=== PATIENT | female | born 1945 | race Caucasian/White ===

== ENCOUNTER → 2018-03-08 14:35 | Outpatient (CLI) | payer MEDICARE, OTHER, SELFPAY ==
--- NOTE | 2018-03-08 | DI.RAD.S_ITS ---
PROCEDURE: XR PELVIS 1-2V INDICATIONS: PELVIC AND PERINEAL PAIN AFTER FALL TECHNIQUE: Single view(s) of the pelvis acquired. COMPARISON: None. FINDINGS: Bones: No fractures or dislocations. No suspicious bony lesions. Lower lumbar discogenic changes. Mild to moderate bilateral hip joint degeneration. Soft tissues: Visualized bowel gas pattern is normal. No suspicious soft tissue calcifications. IMPRESSION: No fracture identified. Dictated by: Hipolito Maloney M.D. on 03/08/2018 at 16:02 Approved by: Hipolito Maloney M.D. on 03/08/2018 at 16:03
== END ==
PROVIDERS: Visit Provider Internal Medicine
DX: R10.2 Pelvic and perineal pain (principal); M16.0 Bilateral primary osteoarthritis of hip
CPT/HCPCS: 72170

== ENCOUNTER → 2018-07-13 15:42 | Outpatient (REF) | payer MEDICARE, OTHER, SELFPAY ==
[2018-07-13 16:06] LABS: BUN Creatinine Ratio 32.9 (6-22); Blood Urea Nitrogen 23 mg/dL (7-17); Calcium 9.7 mg/dL (8.4-10.2); Carbon Dioxide 29 mmol/L (22-32); Chloride 100 mmol/L (98-107); Estimated Glomerular Filt Rate > 60.0 mL/min (>60); Glucose 87 mg/dL (80-110); HEMOLYSIS < 15 (0-50); Potassium 3.7 mmol/L (3.4-5.1); Sodium 139 mmol/L (137-145)
[2018-07-13 16:16] LABS: B Type Natriuretic Peptide < 100 (<100)
== END ==
LOC: LAB 15:42
PROVIDERS: Family Provider Internal Medicine; PCP Internal Medicine; Visit Provider Internal Medicine
DX: I10 Essential (primary) hypertension (principal)
CPT/HCPCS: 80048; 83880

== ENCOUNTER → 2018-09-26 13:02 | Outpatient (CLI) | payer MEDICARE, OTHER, SELFPAY ==
--- NOTE | 2018-10-02 15:17 | PM.PFT.1 ---
Pulmonary Function Test Referral & Results Date Patient Seen: 09/26/18 Requesting provider: Maranda Tom Results: The spirometry demonstrates an FVC of 2.59 L which is 91% of predicted. The FEV1 was measured at 2.01 L which is 93% of predicted. The FEV1/FVC ratio was 78 which is 103% of predicted. Following the administration of bronchodilator there was no appreciable change. Lung volumes show an SVC of 2.3 L which is 86% of predicted. Interpretation: This study demonstrates probably normal spirometry
== END ==
PROVIDERS: PCP Internal Medicine; Visit Provider Internal Medicine
DX: R06.02 Shortness of breath (principal); R06.00 Dyspnea, unspecified
CPT/HCPCS: 94060

== ENCOUNTER → 2019-01-28 08:15 | Outpatient (CLI) | payer MEDICARE, OTHER, SELFPAY ==
[2019-01-28 11:19] LABS: Free T3, Triiodothyronine Free 3.95 pg/mL (2.77-5.27); Free T4, Direct Thyroxine 1.17 ng/dL (0.78-2.19)
[2019-01-28 11:33] LABS: Thyroid Stimulating Hormone 3.24 uIU/mL (0.47-4.68)
== END ==
PROVIDERS: PCP Internal Medicine; Visit Provider Internal Medicine
DX: E04.1 Nontoxic single thyroid nodule (principal)
CPT/HCPCS: 36415; 84439; 84443; 84481

== ENCOUNTER → 2019-01-31 10:45 | Outpatient (CLI) | payer MEDICARE, OTHER, SELFPAY ==
--- NOTE | 2019-01-31 | DI.US.S_ITS ---
PROCEDURE: US THYROID INDICATIONS: THYROID NODULE TECHNIQUE: Real-time scanning was performed of the thyroid gland, with image documentation. COMPARISON: None. FINDINGS: Right: Thyroid lobe measures 5.6 x 3.8 x 3.2 cm, and is homogeneous in echotexture. Left: Thyroid lobe measures 5.2 x 1.5 x 1.4 cm, and is homogenous in echotexture. Isthmus: 3.0 mm thick. Nodule number: 1 Location: Right mid inferior Size: 4.2 x 3.4 x 3.2 cm. Composition: Predominantly solid Echogenicity: Isoechoic Shape: wider than tall. Margins: Ill-defined Echogenic foci: Macrocalcifications Total points: 6 ACR TI-RADS category: Moderately suspicious Nodule number: 2 Location: Left inferior Size: 0.9 x 0.7 x 0.6 cm. Composition: Solid Echogenicity: Hyperechoic Shape: wider than tall. Margins: Smooth Echogenic foci: None Total points: 3 ACR TI-RADS category: Mildly suspicious IMPRESSION: Bilateral thyroid nodules. Recommend sonographically directed fine needle aspiration involving the right thyroid nodule and continued sonographic surveillance as below. ACR TI-RADS definitions and recommendations: TI-RADS 1 (benign): 0 points. FNA not needed. TI-RADS 2 (not suspicious): 2 points. FNA not needed. TI-RADS 3 (mildly suspicious): 3 points. * FNA if 2.5 cm or larger, follow up if 1.5 cm or larger (at 1, 3, and 5 years). TI-RADS 4 (moderately suspicious): 4-6 points. * FNA if 1.5 cm or larger, follow up if 1 cm or larger (at 1, 2, 3, and 5 years). TI-RADS 5 (highly suspicious): 7 points or more. * FNA if 1 cm or larger, follow up if 0.5 cm or larger (every year for 5 years). Dictated by: Omari HINES Interpreted: Angela Bedoya MD on 01/31/2019 at 14:42 Approved by: Jesus Tucker M.D. on 02/05/2019 at 10:00
== END ==
PROVIDERS: PCP Internal Medicine; Visit Provider Internal Medicine
DX: E04.2 Nontoxic multinodular goiter (principal)
CPT/HCPCS: 76536

== ENCOUNTER → 2020-02-17 19:50 | Outpatient (ROUT) | payer MEDICARE, OTHER, SELFPAY ==
[2020-02-17 20:05] LABS: Add Manual Diff / Slide Review NO; Basophils Absolute Auto 0 /uL (0-100); Basophils Percent Auto 0.3 % (0-2); Eosinophils Absolute Auto 100 /uL (0-450); Eosinophils Percent Auto 0.7 % (2-4); Hematocrit 41.6 % (36-46); Hemoglobin 13.4 g/dL (12.0-16.0); Lymphocytes Absolute Auto 1800 /uL (1100-4500); Lymphocytes Percent Auto 17.2 % (25-40); Mean Corpuscular HGB Conc 32.3 % (30-36); Mean Corpuscular Hemoglobin 28.9 PG (26-34); Mean Corpuscular Volume 89.6 fL (80-100); Monocytes Absolute Auto 700 /uL (0-900); Monocytes Percent Auto 7.1 % (3-14); Neutrophils Absolute Auto 7600 /uL (1500-7000); Neutrophils Percent Auto 74.7 % (50-75); Platelet Count 265 X10^3/uL (150-400); Red Blood Cell Count 4.65 X10^6/uL (4.0-5.2); Red Cell Distribution Width 14.7 % (11.6-14.8); White Blood Cell Count 10.2 X10^3/uL (4.5-11.0)
[2020-02-17 20:24] LABS: Hemoglobin A1C% w Est Avg Glu 5.8 % (4.0-6.0)
[2020-02-17 20:25] LABS: Alanine Aminotransferase 21 IU/L (<35); Albumin 4.2 g/dL (3.5-5.0); Albumin Globulin Ratio 1.6 (1.0-2.8); Alkaline Phosphatase 72 U/L (38-126); Aspartate Aminotransferase 24 IU/L (14-36); BUN Creatinine Ratio 25.9 (6-22); Bilirubin Total 0.6 mg/dL (0.2-1.3); Blood Urea Nitrogen 22 mg/dL (7-17); Calcium 9.9 mg/dL (8.4-10.2); Carbon Dioxide 31 mmol/L (22-32); Chloride 99 mmol/L (98-107); Cholesterol 164 mg/dL (140-199); Estimated Glomerular Filt Rate > 60.0 mL/min (>60); Globulin 2.6 g/dL (1.7-4.1); Glucose 116 mg/dL (80-110); HDL Cholesterol 49 mg/dL (40-60); HEMOLYSIS < 15 (0-50); LDL Cholesterol Calculated 75 mg/dL (<100); Potassium 3.7 mmol/L (3.4-5.1); Sodium 138 mmol/L (137-145); Total Protein 6.8 g/dL (6.3-8.2); Triglycerides 200 mg/dL (35-150)
[2020-02-17 20:32] LABS: NT-proBNP (BNP-Adult 18+) 306 pg/mL (<125)
== END ==
PROVIDERS: PCP Internal Medicine; Visit Provider Internal Medicine
DX: R73.9 Hyperglycemia, unspecified (principal); R06.00 Dyspnea, unspecified; E78.5 Hyperlipidemia, unspecified
CPT/HCPCS: 80053; 80061; 83036; 83880; 85025

== ENCOUNTER → 2020-08-04 18:39 | Outpatient (ROUT) | payer MEDICARE, OTHER, SELFPAY ==
[2020-08-04 19:14] LABS: Add Manual Diff / Slide Review NO; Basophils Absolute Auto 100 /uL (0-100); Basophils Percent Auto 0.6 % (0-2); Eosinophils Absolute Auto 100 /uL (0-450); Eosinophils Percent Auto 1.4 % (2-4); Hematocrit 41.4 % (36-46); Hemoglobin 13.3 g/dL (12.0-16.0); Lymphocytes Absolute Auto 2400 /uL (1100-4500); Lymphocytes Percent Auto 26.3 % (25-40); Mean Corpuscular HGB Conc 32.2 % (30-36); Mean Corpuscular Hemoglobin 28.7 PG (26-34); Mean Corpuscular Volume 89.3 fL (80-100); Monocytes Absolute Auto 700 /uL (0-900); Monocytes Percent Auto 7.5 % (3-14); Neutrophils Absolute Auto 5900 /uL (1500-7000); Neutrophils Percent Auto 64.2 % (50-75); Platelet Count 258 X10^3/uL (150-400); Red Blood Cell Count 4.64 X10^6/uL (4.0-5.2); Red Cell Distribution Width 14.6 % (11.6-14.8); White Blood Cell Count 9.3 X10^3/uL (4.5-11.0)
[2020-08-04 19:21] LABS: Alanine Aminotransferase 23 IU/L (<35); Albumin 4.4 g/dL (3.5-5.0); Albumin Globulin Ratio 1.7 (1.0-2.8); Alkaline Phosphatase 70 U/L (38-126); Aspartate Aminotransferase 27 IU/L (14-36); BUN Creatinine Ratio 24.7 (6-22); Bilirubin Total 0.5 mg/dL (0.2-1.3); Blood Urea Nitrogen 21 mg/dL (7-17); Calcium 10.4 mg/dL (8.4-10.2); Carbon Dioxide 34 mmol/L (22-32); Chloride 100 mmol/L (98-107); Cholesterol 193 mg/dL (140-199); Estimated Glomerular Filt Rate > 60.0 mL/min (>60); Globulin 2.6 g/dL (1.7-4.1); Glucose 92 mg/dL (80-110); HDL Cholesterol 46 mg/dL (40-60); HEMOLYSIS < 15 (0-50); LDL Cholesterol Calculated 102 mg/dL (<100); Sodium 138 mmol/L (137-145); Triglycerides 227 mg/dL (35-150)
[2020-08-04 19:51] LABS: TSH w/ Reflex to FT4 1.66 uIU/mL (0.47-4.68)
== END ==
PROVIDERS: PCP Internal Medicine; Visit Provider Internal Medicine
DX: R42 Dizziness and giddiness (principal); I67.89 Other cerebrovascular disease
CPT/HCPCS: 80053; 80061; 84443; 85025

== ENCOUNTER → 2020-08-17 11:13 | Outpatient (CLI) | payer MEDICARE, OTHER, SELFPAY ==
--- NOTE | 2020-08-17 | DI.MRI.S_ITS ---
PROCEDURE: MR HEAD/BRAIN WO/W CON INDICATIONS: Unsteadiness on feet TECHNIQUE: Noncontrast axial T1 spin echo, axial T2 fast spin echo, sagittal and axial FLAIR, coronal T2 fast spin echo, axial gradient echo, axial diffusion and ADC through the brain. After the administration of contrast, axial and coronal T1 spin echo with fat saturation through the brain. COMPARISON: None. FINDINGS: Image quality: Diagnostic, with note made of motion artifact. CSF spaces: Basal cisterns are patent. No extra-axial fluid collections. Ventricles are normal in size and shape. Brain: No midline shift. No intracranial bleeds or masses. No abnormal intracranial enhancement. There is cerebral volume loss for age. There is periventricular white matter chronic small vessel ischemic change. The brainstem appears normal. Diffusion-weighted images demonstrate no acute ischemic insults. No chronic ischemic insults. Normal intravascular flow voids are present. Skull and face: Calvarial marrow is normal in signal. Orbits appear normal. Note is made of bilateral lens replacements. Sinuses: Sinuses and mastoids appear clear. Absence of the medial phillips of the maxillary sinuses can be seen. IMPRESSION: Unremarkable intracranial study for age, demonstrating brain parenchymal volume loss and chronic small vessel ischemic change. No findings of acute or subacute infarction can be seen. No masses or abnormal enhancement can be seen. Dictated by: Brandan Helm M.D. on 08/17/2020 at 11:17 Approved by: Brandan Helm M.D. on 08/17/2020 at 11:18
== END ==
PROVIDERS: PCP Internal Medicine; Referring Provider Internal Medicine; Visit Provider Internal Medicine
DX: R26.81 Unsteadiness on feet (principal)
CPT/HCPCS: 70553

== ENCOUNTER → 2020-09-01 10:17 | Outpatient (CLI) | payer MEDICARE, OTHER, SELFPAY | PROVIDERS: PCP Student in an Organized Health Care Education/Training Program; Referring Provider Student in an Organized Health Care Education/Training Program; Visit Provider Student in an Organized Health Care Education/Training Program | DX: M85.852 Other specified disorders of bone density and structure, left thigh (principal); Z78.0 Asymptomatic menopausal state; Z90.722 Acquired absence of ovaries, bilateral | CPT/HCPCS: 77080 ==

== ENCOUNTER 2023-01-25 01:07 | Emergency (ER) | payer MEDICARE, OTHER, SELFPAY ==
[2023-01-25 01:17] VITALS: BP 129/60; PULSE 95; RESP 18; TEMP 36.6; O2SAT 97; BMI 31.6
--- NOTE | 2023-01-25 01:23 | DI.RAD.S_ITS ---
PROCEDURE: XR RIBS RT MIN 3V W CXR 1V INDICATIONS: fall injury TECHNIQUE: Two views of the right ribs were acquired, along with a single view chest. COMPARISON: [facility], , CHEST 2 VIEW, 05/28/2013, 12:16. FINDINGS: Surgical changes and devices: None. Bones and chest wall: No displaced rib fracture identified. No suspicious bony lesions. Overlying soft tissues appear unremarkable. Lungs and pleura: No pleural effusions or pneumothorax. There are low lung volumes. Linear opacity peripherally in the left lung base is nonspecific. Mediastinum: Mediastinal contours appear normal. Heart size is normal. IMPRESSION: 1. No displaced rib fracture identified. 2. Linear peripheral left basilar opacity is nonspecific and the differential includes atelectasis, scarring, or consolidation. Dictated by: Jet Barcenas M.D. on 01/25/2023 at 2:11 Approved by: Jet Barcenas M.D. on 01/25/2023 at 2:13
--- NOTE | 2023-01-25 03:25 | ED_ITS ---
HPI - Fall General Chief Complaint: Fall Stated Complaint: fell week ago and rt side rib pain Time Seen by Provider: 01/25/23 03:25 Source: patient Mode of arrival: Ambulatory History of Present Illness HPI Narrative: Patient is a 78-year-old female history of hyperlipidemia, hypertension presenting today with right upper quadrant pain. She reports that she fell about 7-10 days ago while getting up from the couch. She I guess was leaning on a TV table when fell. She was not evaluated at that time she is been doing well no significant pain until today. It does hurt to sit up. No nausea or vomiting. No real chest pain. Difficult to pinpoint but is in a right upper quadrant region. No fever or chills. Related Data Home Medications Medication Instructions Recorded Confirmed ACETAMINOPHEN (#TYLENOL) 1,000 mg PO PRN ##0 04/13/11 ASPIRIN (Aspir-Low) 81 mg PO QDAY ##0 04/13/11 Metoprolol Tartrate (LOPRESSOR) 50 mg PO QDAY ##0 04/13/11 SERTRALINE HCL (Sertraline HCl) 100 mg PO HS ##0 04/13/11 [B 12 ] 1,000 mg PO QDAY ##0 04/13/11 [CALCIUM W/ D3 ] 1,800 mg PO QDAY ##0 04/13/11 [MULTI VITAMIN] 1 tab PO Q DAY ##0 04/13/11 tramadol 50 mg tablet 50 mg PO PRN ##0 04/13/11 atorvastatin 20 mg tablet (Lipitor) 20 mg PO HS ##0 04/18/17 chlorthalidone 25 mg tablet 12.5 mg PO QDAY ##0 04/18/17 latanoprost 0.005 % eye drops 1 drp OPHTH HS ##0 04/18/17 oxybutynin chloride 5 mg 5 mg PO QDAY ##0 04/18/17 tablet,extended release 24 hr (Ditropan XL) losartan 100 mg tablet 100 mg PO QDAY ##0 04/25/17 Allergies Allergy/AdvReac Type Severity Reaction Status Date / Time erythromycin base AdvReac Intermediate GI UPSET Unverified 08/30/17 11:55 Review of Systems Review of Systems ROS Unobtainable: All systems reviewed & are unremarkable except as noted in HPI and below Exam Initial Vital Signs Initial Vital Signs: Vital Signs Temperature 98 F 01/25/23 01:17 Pulse Rate 95 H 01/25/23 01:17 Respiratory Rate 18 01/25/23 01:17 Blood Pressure 129/60 01/25/23 01:17 Pulse Oximetry 97 01/25/23 01:17 Oxygen Delivery Method Room Air 01/25/23 01:17 GENERAL: Alert pleasant 78-year-old female and in no acute distress. HEENT: Head atraumatic,EOMI, pupils reactive, face symmetric, moist mucous membranes CARDIOVASCULAR: Regular rate and rhythm without murmurs, rubs or gallops. RESPIRATORY: Breath sounds equal bilaterally, no wheezes rales or rhonchi. ABDOMEN: Soft, nontender. Normoactive bowel sounds all 4 quadrants. No guarding or rebound. Negative Cuellar sign EXTREMITIES: Normal range of motion, no clubbing or edema. Neurovascularly intact NEUROLOGICAL: Alert and oriented x4. SKIN: Warm, dry, no laceration, no petechiae, no rashes or lesions. Course Orders Ordered: ED Orders 01/25/23 01:23 XR ribs RT min 3V w CXR1V Stat 01/25/23 03:40 US abdomen limited Stat CBC Auto Diff [Complete Blood Count AUTO DIFF] Stat CMP [Comprehensive Metabolic Panel] Stat Lipase Stat Vital Signs Vital signs: Vital Signs - 8 hr 01/25/23 01:17 01/25/23 04:41 01/25/23 04:41 Temperature 98 F Pulse Rate 95 H 90 Respiratory Rate 18 16 Blood Pressure 129/60 121/80 Pulse Oximetry 97 95 Oxygen Delivery Method Room Air MDM - Fall Lab Data 01/25/23 03:40 01/25/23 03:40 Labs: Lab Results 01/25/23 01/25/23 Range/Units 03:40 03:40 WBC 13.4 H (4.5-11.0) X10^3/uL RBC 4.26 (4.0-5.2) X10^6/uL Hgb 12.3 (12.0-16.0) g/dL Hct 37.1 (36-46) % MCV 87.1 (80-100) fL MCH 29.0 (26-34) PG MCHC 33.3 (30-36) % RDW 14.0 (11.6-14.8) % Plt Count 241 (150-400) X10^3/uL Neut % (Auto) 85.4 H (50-75) % Lymph % (Auto) 7.7 L (25-40) % [place] % (Auto) 6.5 (3-14) % Eos % (Auto) 0.2 L (2-4) % Baso % (Auto) 0.2 (0-2) % Neut # (Auto) 70769 H (2132-4752) /uL Lymph # (Auto) 1000 L (0325-4866) /uL [place] # (Auto) 900 (0-900) /uL Eos # (Auto) 0 (0-450) /uL Baso # (Auto) 0 (0-100) /uL Sodium 132 L (137-145) mmol/L Potassium 3.4 (3.4-5.1) mmol/L Chloride 100 (98-107) mmol/L Carbon Dioxide 23 (22-32) mmol/L BUN 30 H (7-17) mg/dL Creatinine 0.76 (0.52-1.04) mg/dL Estimated GFR > 60 (>60) mL/min BUN/Creatinine Ratio 39.5 H (6-22) Glucose 165 H (80-110) mg/dL Calcium 8.6 (8.4-10.2) mg/dL Total Bilirubin 0.6 (0.2-1.3) mg/dL AST 41 H (14-36) IU/L ALT 32 (<35) IU/L Alkaline Phosphatase 64 (38-126) U/L Total Protein 6.6 (6.3-8.2) g/dL Albumin 3.4 L (3.5-5.0) g/dL Globulin 3.2 (1.7-4.1) g/dL Albumin/Globulin Ratio 1.1 (1.0-2.8) Lipase 123 (23-300) U/L Imaging Data Chest x-ray: Radiologist's Impression: PROCEDURE:? XR RIBS RT MIN 3V W CXR 1V ? INDICATIONS:? fall injury ? TECHNIQUE:? Two views of the right ribs were acquired, along with a single view chest.? ? COMPARISON:? [facility], , CHEST 2 VIEW, 05/28/2013, 12:16. ? FINDINGS:? ? Surgical changes and devices:? None.? ? Bones and chest wall:? No displaced rib fracture identified.? No suspicious bony lesions. ?Overlying soft tissues appear unremarkable.? ? Lungs and pleura:? No pleural effusions or pneumothorax.? There are low lung volumes.? Linear opacity peripherally in the left lung base is nonspecific. ? Mediastinum:? Mediastinal contours appear normal.? Heart size is normal.? ? IMPRESSION:? ? 1. No displaced rib fracture identified. ? 2. Linear peripheral left basilar opacity is nonspecific and the differential includes atelectasis, scarring, or consolidation. ? ? US - abdomen: Radiologist's Impression: Preliminary report: Echogenic structure within right hepatic lobe likely hemangioma. No sonographic features of acute cholecystitis MDM Narrative Medical decision making narrative: Patient 78-year-old female fall 7-10 days ago now presenting with right upper quadrant pain. She is not really tender in her right upper quadrant but she can find a specific spot. It might be musculoskeletal her x-ray of her ribs is negative. However ever the fall happened about 10 days ago concern that there might be something else such as cholecystitis or cholelithiasis. Blood work and ultrasound ordered. Blood work is overall reassuring no elevated bilirubin or lipase. Ultrasound does not show any cholecystitis or cholelithiasis. X-ray does not show any fracture. Discharge Plan Departure Patient Disposition: Home Clinical Impression: Contusion of rib Instructions: DI for Rib Contusion Activity Restrictions/Additional Instructions: *You have been diagnosed with rib contusion *What to do: At this time he did not break any ribs gallbladder appears within normal limits. Increase activity as tolerated ice or heat as needed *Continue to take medications as directed Motrin or Tylenol as needed for pain *Follow up with your primary care provider in 2-3 days or call [phone] *Return to ER if you should have increasing pain nausea vomiting chest pain or any new, worsening or concerning symptoms Prescriptions: No Action Metoprolol Tartrate (LOPRESSOR) 50 mg PO QDAY Qty: 0 tramadol 50 MG tablet 50 mg PO PRN Qty: 0 SERTRALINE HCL (Sertraline HCl) 100 mg PO HS Qty: 0 ACETAMINOPHEN (#TYLENOL) 1,000 mg PO PRN Qty: 0 ASPIRIN (Aspir-Low) 81 mg PO QDAY Qty: 0 [B 12 ] 1,000 mg PO QDAY Qty: 0 [CALCIUM W/ D3 ] 1,800 mg PO QDAY Qty: 0 [MULTI VITAMIN] 1 tab PO Q DAY Qty: 0 latanoprost 0.005 % drops 1 drp OPHTH HS Qty: 0 atorvastatin [Lipitor] 20 MG tablet 20 mg PO HS Qty: 0 chlorthalidone 25 MG tablet 12.5 mg PO QDAY Qty: 0 oxybutynin chloride [Ditropan XL] 5 MG tablet extended release 24hr 5 mg PO QDAY Qty: 0 losartan 100 MG tablet 100 mg PO QDAY Qty: 0 Referrals: Mariama Green, [facility] [Primary Care Provider] - Stand Alone Forms: Patient Portal/API
--- NOTE | 2023-01-25 03:40 | DI.US.S_ITS ---
PROCEDURE: US ABDOMEN LIMITED INDICATIONS: RUQ PAIN TECHNIQUE: Real-time scanning was performed of the abdominal and retroperitoneal organs, with image documentation. COMPARISON: None. FINDINGS: Liver: Liver is normal in size and normal in echotexture. 3-4 echogenic and solid appearing structures are noted scattered in hepatic lobe measures up to 3.3 x 2.3 x 2.2 cm in size in right hepatic lobe posterior segment and show no internal vascularity. Gallbladder: Gallbladder is within normal limits. No sonographic Cuellar sign. Biliary ducts: Intrahepatic bile ducts are non-dilated. Extrahepatic bile duct caliber measures 3.8 mm. Normal is 6-7 mm or less in diameter, or 10 mm or less post-cholecystectomy. Pancreas: Visualized portions of the pancreas are sonographically normal. Miscellaneous: No free abdominal fluid. IMPRESSION: 1. Finding likely represent multiple hepatic hemangioma as described above. 2. Normal appearing gallbladder. No biliary ductal dilatation. No discrepancies from preliminary reading. Dictated by: Keaton Regan M.D. on 01/25/2023 at 8:08 Approved by: Keaton Regan M.D. on 01/25/2023 at 8:10
[2023-01-25 03:56] LABS: Add Manual Diff / Slide Review NO; Basophils Absolute Auto 0 /uL (0-100); Basophils Percent Auto 0.2 % (0-2); Eosinophils Absolute Auto 0 /uL (0-450); Eosinophils Percent Auto 0.2 % (2-4); Hematocrit 37.1 % (36-46); Hemoglobin 12.3 g/dL (12.0-16.0); Lymphocytes Absolute Auto 1000 /uL (1100-4500); Lymphocytes Percent Auto 7.7 % (25-40); Mean Corpuscular HGB Conc 33.3 % (30-36); Mean Corpuscular Volume 87.1 fL (80-100); Monocytes Absolute Auto 900 /uL (0-900); Monocytes Percent Auto 6.5 % (3-14); Neutrophils Absolute Auto 11400 /uL (1500-7000); Neutrophils Percent Auto 85.4 % (50-75); Platelet Count 241 X10^3/uL (150-400); Red Blood Cell Count 4.26 X10^6/uL (4.0-5.2); White Blood Cell Count 13.4 X10^3/uL (4.5-11.0)
[2023-01-25 04:06] LABS: Alanine Aminotransferase 32 IU/L (<35); Albumin 3.4 g/dL (3.5-5.0); Albumin Globulin Ratio 1.1 (1.0-2.8); Alkaline Phosphatase 64 U/L (38-126); Aspartate Aminotransferase 41 IU/L (14-36); BUN Creatinine Ratio 39.5 (6-22); Bilirubin Total 0.6 mg/dL (0.2-1.3); Blood Urea Nitrogen 30 mg/dL (7-17); Calcium 8.6 mg/dL (8.4-10.2); Carbon Dioxide 23 mmol/L (22-32); Chloride 100 mmol/L (98-107); Estimated Glomerular Filt Rate > 60 mL/min (>60); Globulin 3.2 g/dL (1.7-4.1); Glucose 165 mg/dL (80-110); HEMOLYSIS 20 (0-50); Lipase 123 U/L (23-300); Potassium 3.4 mmol/L (3.4-5.1); Sodium 132 mmol/L (137-145); Total Protein 6.6 g/dL (6.3-8.2)
[2023-01-25 04:41] VITALS: BP 121/80; PULSE 90; RESP 16; O2SAT 95
== END 2023-01-25 05:00 | disposition home or self-care (01) ==
PROVIDERS: Emergency Provider Emergency Medicine; PCP Student in an Organized Health Care Education/Training Program
DX: S20.211A Contusion of right front wall of thorax, initial encounter (principal); W07.XXXA Fall from chair, initial encounter
CPT/HCPCS: 36415; 71101; 76705; 80053; 83690; 85025; 99283; 99284

== ENCOUNTER → 2023-02-16 08:01 | Outpatient (CLI) | payer MEDICARE, OTHER, SELFPAY ==
--- NOTE | 2023-02-16 | DI.ECHO.S_ITS ---
[facility] +---------+ : : [address] [place] [address] : : : : [id number] : : : : Phone: [phone]+ Echocardiogram Report + + :Name: ERI MARIE Study Date: 02/16/2023 Height: 65 in : :[facility] ReadingLocation: Weight: 172 lb : : Gender: Female BSA: 1.9 m2 : :: 1945 Age: 78 yrs BP: 144/70 mmHg: :Reason For Study: CARDIAC MURMUR : :Ordering Physician: MARELY, : :DAVIN Performed By: Michelle Rocha : :Referring: DAVIN YAP : + + Interpretation Summary The left ventricle is normal in size. Left ventricular systolic function appears normal without focal wall motion abnormalities. The ejection fraction is estimated to be 55-60%. The right ventricle is normal in size and function. The left atrium is mildly dilated. There is moderate mitral annular calcification. There is trace mitral regurgitation. There is no other significant valvular heart disease. The aortic root is normal size. Procedure: A two-dimensional transthoracic echocardiogram with color flow and Doppler was performed. The study quality was technically adequate. There is no prior echocardiogram noted for this patient. The patient was in sinus rhythm with heart rates between 62-84 bpm during the exam. Left Ventricle: The left ventricle is normal in size. Proximal septal thickening is noted. Left ventricular systolic function appears normal without focal wall motion abnormalities. The ejection fraction is estimated to be 55- 60%. Diastolic function could not be accurately assessed due to contradictory data. Right Ventricle: The right ventricle is normal in size and function. Atria: The left atrium is mildly dilated. Right atrial size is normal. There is no Doppler evidence for an interatrial shunt. Mitral Valve: The mitral valve leaflets appear mildly thickened, but open well. There is moderate mitral annular calcification. There is trace mitral regurgitation. Aortic Valve: The aortic valve is trileaflet. The aortic valve opens well. There is no aortic valve stenosis. No aortic regurgitation is present. Tricuspid Valve: The tricuspid valve is normal in structure and function. There is trace tricuspid regurgitation. Pulmonic Valve: The pulmonic valve leaflets are thin and pliable; valve motion is normal. There is no pulmonic valvular regurgitation. There is no other significant valvular heart disease. Great Vessels: The aortic root is normal size. The dimensions of the ascending aorta are normal. The IVC is of normal diameter and collapses greater than 50% with a sniff. This suggests a low right atrial pressure of 3 mm Hg. Pericardium/ Pleura There is a trivial pericardial effusion noted. There is no pleural effusion. MMode/2D Measurements & Calculations LVIDd: 5.0 cm LVOT diam: 2.0 cm LVIDs: 3.1 cm Ao root diam: 2.6 cm FS: 37.4 % asc Aorta Diam: 3.3 cm EPSS: 0.25 cm IVSd: 0.93 cm LVPWd: 1.0 cm LV [place]. diameter/BSA (cm/m^2): 2.7 LV sys. diameter/BSA (cm/m^2): 1.7 LA A2 area: 20.8 cm2 RA long axis: 4.9 cm LA A4 area: 22.6 cm2 RA area: 10.2 cm2 LA length (vol): 5.6 cm RA vol: 17.7 ml LA vol: 70.8 ml RA : 9.6 ml/m2 LA vol index: 38.2 ml/m2 IVC diam: 1.6 cm RVD1 (basal): 3.2 cm RVD2 (mid): 2.3 cm TAPSE: 2.2 cm Doppler Measurements & Calculations Ao V2 max: 161.1 cm/sec LVOT Max Temo: 136.6 cm/sec Ao V2 mean: 120.9 cm/sec LV V1 max P.5 mmHg Ao max P.4 mmHg LV V1 VTI: 30.3 cm Ao mean P.3 mmHg DUANE(I,D): 2.7 cm2 Ao V2 VTI: 36.4 cm DUANE(V,D): 2.7 cm2 sev ratio: 0.83 DUANE indexed to BSA (cm^2/m^2): 1.5 MV E max temo: 100.3 cm/sec TR max temo: 268.4 cm/sec MV A max temo: 113.7 cm/sec TR max P.8 mmHg MV E/A: 0.88 PA V2 max: 90.0 cm/sec Med Peak E' Temo: 3.6 cm/sec PA V2 mean: 63.9 cm/sec E/E' med: 27.7 PA mean P.8 mmHg Lat Peak E' Temo: 4.4 cm/sec PA pr(Accel): 36.2 mmHg E/E' lat: 22.6 E/e' average: 25.2 MV dec time: 0.30 sec MVA(VTI): 2.7 cm2 MV V2 mean: 78.0 cm/sec SV(LVOT): 98.0 ml MV mean P.8 mmHg MV V2 VTI: 36.2 cm Reading Physician:06:05 PM
== END ==
PROVIDERS: PCP Student in an Organized Health Care Education/Training Program; Referring Provider Student in an Organized Health Care Education/Training Program; Visit Provider Student in an Organized Health Care Education/Training Program
DX: I34.81 Nonrheumatic mitral (valve) annulus calcification (principal); R01.1 Cardiac murmur, unspecified
CPT/HCPCS: 93306

== ENCOUNTER 2023-03-06 19:04 | Emergency (ER) | payer MEDICARE, OTHER, SELFPAY ==
[2023-03-06 19:05] VITALS: BP 144/67; PULSE 95; RESP 20; TEMP 36.8; O2SAT 98; BMI 28.3
[2023-03-06] MEDS: TET,DIPH,PERTUSS(ACELL),VAC/PF 0.5 ML SYRINGE IM (19:58)
--- NOTE | 2023-03-06 21:54 | ED.WOUNDLAC ---
HPI - Wound/Laceration General Chief Complaint: Wound/Laceration Stated Complaint: glf, lace right eyebrown. Time Seen by Provider: 03/06/23 21:38 Source: patient Mode of arrival: EMS History of Present Illness HPI narrative: 78-year-old woman with a history of hypertension hyperlipidemia mobility impairment presents after falling in the laundry room. She describes the fall as being off balance going forward and hitting the right side of her forehead on the edge of a wheelchair. She describes it as a minor injury with no loss of consciousness. She is not complaining of headache or neck pain. There was no weakness, palpitations or preceding symptoms prior to the stumble. She describes no recent fevers, cough, chills. No palpitations chest pain or dyspnea Related Data Home Medications Medication Instructions Recorded Confirmed ACETAMINOPHEN (#TYLENOL) 1,000 mg PO PRN ##0 04/13/11 ASPIRIN (Aspir-Low) 81 mg PO QDAY ##0 04/13/11 Metoprolol Tartrate (LOPRESSOR) 50 mg PO QDAY ##0 04/13/11 SERTRALINE HCL (Sertraline HCl) 100 mg PO HS ##0 04/13/11 [B 12 ] 1,000 mg PO QDAY ##0 04/13/11 [CALCIUM W/ D3 ] 1,800 mg PO QDAY ##0 04/13/11 [MULTI VITAMIN] 1 tab PO Q DAY ##0 04/13/11 tramadol 50 mg tablet 50 mg PO PRN ##0 04/13/11 atorvastatin 20 mg tablet (Lipitor) 20 mg PO HS ##0 04/18/17 chlorthalidone 25 mg tablet 12.5 mg PO QDAY ##0 04/18/17 latanoprost 0.005 % eye drops 1 drp OPHTH HS ##0 04/18/17 oxybutynin chloride 5 mg 5 mg PO QDAY ##0 04/18/17 tablet,extended release 24 hr (Ditropan XL) losartan 100 mg tablet 100 mg PO QDAY ##0 04/25/17 Allergies Allergy/AdvReac Type Severity Reaction Status Date / Time erythromycin base AdvReac Intermediate GI UPSET Unverified 08/30/17 11:55 Review of Systems Review of Systems Narrative: Pertinent positive and negative findings as per HPI Patient History Medical History (Updated 03/06/23 @ 22:16 by Cathy Cisneros MD) Depression Hyperlipidemia Hypertension Social History Smoking Status: Never smoker Smoking Status: Never smoker alcohol intake frequency: a few times a month Substance Use Type: does not use Exam Initial Vital Signs Initial Vital Signs: Vital Signs Temperature 98.3 F 03/06/23 19:05 Pulse Rate 95 H 03/06/23 19:05 Respiratory Rate 20 03/06/23 19:05 Blood Pressure 144/67 H 03/06/23 19:05 Pulse Oximetry 98 03/06/23 19:05 Oxygen Delivery Method Room Air 03/06/23 19:05 General: Healthy appearing, in no acute distress. Able to give a complete and coherent history. Well-nourished well-developed HEENT: Moist mucous membranes, normal sclera with reactive pupils, 4 cm linear laceration just over the right eyebrow without abrasion or contusion. No skull tenderness Neck: No midline cervical spine tenderness, supple Respiratory: Lungs are clear to auscultation, no wheezing no rales no rhonchi. Full and symmetrical air movement Cardiac: Regular rate and rhythm no murmurs no bruits Abdomen: Soft, nontender, good bowel tones, no flank pain Skin: Warm and dry, no rashes Neurologic: Grossly neurologically intact with no obvious asymmetries or abnormalities Extremities: No trauma to extremity secondary today's fall Psych: Cooperative, appropriate insight and affect Procedures Laceration Repair Left forehead laceration: Time of procedure: 22:12 Site: face Side (If applicable): left Size (cm): 4 Description: linear Depth: simple, single layer Local Anesthetic: lidocaine 1% Amount of anesthesia used (mL): 3 Pre-repair: wound explored and deep structures intact Skin layer closed with: nylon Skin layer suture size: 4-0 Number of sutures: 4 Technique: simple, interrupted Course Orders Ordered: Discontinued Medications Diphtheria/Tetanus/Acell Pertussis (Tet,Diph,Pertuss(Acell),Vac/Pf 0.5 Ml Syringe) 0.5 ml IM .ONCE ONE Stop: 03/06/23 19:54 Last Admin: 03/06/23 19:58 Dose: 0.5 ml Documented By: AMV Vital Signs Vital signs: Vital Signs - 8 hr 03/06/23 19:05 Temperature 98.3 F Pulse Rate 95 H Respiratory Rate 20 Blood Pressure 144/67 H Pulse Oximetry 98 Oxygen Delivery Method Room Air MDM - Wound/Laceration MDM Narrative Medical decision making narrative: CC: Forehead laceration Complicating co-morbidities: Mobility impairment, hypertension, hyperlipidemia Data collected from: patient, Differential considered: Simple laceration, complex laceration, skull fracture, intracranial hemorrhage, cervical spine injury, other incidental trauma Exam documented above, pertinent findings include: 4 cm linear laceration above the right brow not in balding the brow. She is no midline cervical spine pain and no other sequelae of any trauma Imaging studies independently reviewed: With shared decision-making after discussion regarding the fall mechanism, we opted to not order head CT or cervical spine CT Treatments: 4 sutures are placed Discussion: 78-year-old woman with mechanical fall stumbled forward hitting the right side of her head suffering a linear laceration. It was more related to the perfect angle at the edge of a sharp object with minimal overall impact. Given the, we chose to not proceed with any advanced imaging. There was no indication that there was any medical complication that caused the fall and she does have limited mobility. Sutures were placed without difficulty she is having minimal pain and tenderness. Questions are answered and she is safe for discharge Discharge Plan Departure Patient Disposition: Home Clinical Impression: Laceration Instructions: DI for Laceration Repair Activity Restrictions/Additional Instructions: Thank you for coming in today Fortunately it does not look like you injured herself beyond the simple cut to your forehead. The cut itself is clean thank you and was easily repaired with 4 stitches. You will need the stitches taken out on or about March 16. You can schedule an appointment with your primary care provider go to urgent care or return to the emergency department to have those taken out If you find that you are getting worse or develop any new symptoms, please feel free to return to the emergency department for further evaluation. Prescriptions: No Action Metoprolol Tartrate (LOPRESSOR) 50 mg PO QDAY Qty: 0 tramadol 50 MG tablet 50 mg PO PRN Qty: 0 SERTRALINE HCL (Sertraline HCl) 100 mg PO HS Qty: 0 ACETAMINOPHEN (#TYLENOL) 1,000 mg PO PRN Qty: 0 ASPIRIN (Aspir-Low) 81 mg PO QDAY Qty: 0 [B 12 ] 1,000 mg PO QDAY Qty: 0 [CALCIUM W/ D3 ] 1,800 mg PO QDAY Qty: 0 [MULTI VITAMIN] 1 tab PO Q DAY Qty: 0 latanoprost 0.005 % drops 1 drp OPHTH HS Qty: 0 atorvastatin [Lipitor] 20 MG tablet 20 mg PO HS Qty: 0 chlorthalidone 25 MG tablet 12.5 mg PO QDAY Qty: 0 oxybutynin chloride [Ditropan XL] 5 MG tablet extended release 24hr 5 mg PO QDAY Qty: 0 losartan 100 MG tablet 100 mg PO QDAY Qty: 0 Referrals: Mariama Green, PAFransisco [Primary Care Provider] - Stand Alone Forms: Patient Portal/API
[2023-03-06 22:23] VITALS: BP 135/75; PULSE 81; RESP 18; O2SAT 96
== END 2023-03-06 22:24 | disposition home or self-care (01) ==
PROVIDERS: Emergency Provider Emergency Medicine; PCP Student in an Organized Health Care Education/Training Program
DX: S01.81XA Laceration without foreign body of other part of head, initial encounter (principal); W05.0XXA Fall from non-moving wheelchair, initial encounter; Z23 Encounter for immunization
CPT/HCPCS: 12013; 90471; 99283; 90715